=== PATIENT | female | born 1930 | race Caucasian/White ===

== ENCOUNTER 2017-11-22 17:47 | Inpatient (IN) | payer MEDICARE ==
[~2017-11-22] VITALS: Ht 170.1 cm; Wt 61.7 kg
--- NOTE | ~2017-11-22 | PR ---
[place], [place] PROGRESS NOTE NAME: ZULEMA ODONNELL I UNIT #: [id number] ROOM: 311 DOCTOR: EDDIE ALVAREZ MD BIRTHDATE: [birth year] DOS: 11/28/2017 CHIEF COMPLAINT: "This place is foolish ." SUMMARY OF THE VISIT: The patient was interviewed as she sat after eating her breakfast. She continues to be short, terse, sarcastic and irritable. There is a depressive component to her symptoms. She did initially come across rather standoffish by stating that this is a very negative place, but as I stayed firm and continued to talk to her in a soft reassuring voice, she did lighten up and engage in conversation. She did report that she slept well and otherwise is feeling well. MENTAL STATUS: She is alert and oriented to person, place, not necessarily to time. Mood still is depressed. Affect is flat, blunted with a constricted range, but she does brighten upon further discussion. There is no rian or hypomania. There are no overt auditory or visual hallucinations. No delusions, no paranoia. Short term memory has gaps, otherwise she is intact. PLAN: I will increase the Trintellix to 20 mg a day. Continue to engage in individual and jhaveri milieu activities, returning to the least restrictive environment when stable. EDDIE ALVAREZ MD CM:PNTRANS [id number] EDDIE ALVAREZ MD 11/28/1718 interface
--- NOTE | ~2017-11-22 | PR ---
[place], [place] PROGRESS NOTE NAME: ZULEMA ODONNELL I UNIT #: [id number] ROOM: 311 DOCTOR: EDDIE ALVAREZ MD BIRTHDATE: [birth year] DOS: 11/29/2017 CHIEF COMPLAINT: "When do I get to go home." SUMMARY OF THE VISIT: The patient was interviewed after she had completed her breakfast. She was sitting there, watching television. She stopped and engaged readily in conversation. She reports that she is ready to go home and does not know why she is still here. She remains somewhat terse at times, but does redirect with a little bit of support. There is no agitation or aggression noted, no physical aggression at least. Verbally, she does stop when you engage her more readily. MENTAL STATUS: She is alert and oriented with significant time gaps. Mood does seem to be trending towards euthymia. Affect is more appropriate. There is no rian or hypomania. There are no overt auditory or visual hallucinations. No delusions, no paranoia. Short term memory remains poor. PLAN: I will recheck a valproic acid level in the a.m. on 11/30/2017 to ensure that it is therapeutic. Continue to engage in individual and jhaveri milieu activity, returning to the least restrictive environment when stable. EDDIE ALVAREZ MD CM:PNTRANS 0819 EDDIE ALVAREZ MD 11/29/17 0913 interface
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
--- NOTE | ~2017-11-22 | PR ---
[place], [place] PROGRESS NOTE NAME: ZULEMA ODONNELL I UNIT #: [id number] ROOM: 311 DOCTOR: EDDIE ALVAREZ MD BIRTHDATE: [birth year] DOS: 11/26/2017 CHIEF COMPLAINT: "What do you want?" SUMMARY OF THE VISIT: The patient was interviewed as she sat eating her breakfast in the quiet room. She was very terse and short this morning, very irritable. She tended to be very negativistic in her overall approach. Nurses report continued mood swings and mood lability. MENTAL STATUS: She is alert and oriented to person, place, but not time. Mood does still seem to be rather labile and affect at times is inappropriate. There is no rian or hypomania. There are no overt auditory or visual hallucinations. She does process slowly and short term memory remains poor. PLAN: Her RPR is positive, so I will go ahead and order an FTA antibody. She continues to exhibit excessive mood lability and irritability. I will increase her Depakote Sprinkles from 250 mg 3 times a day to 500 mg twice a day, targeting a blood level between 60 and 80 in order to decrease mood lability and impulsivity. We will continue to engage in individual and jhaveri milieu activity with the plan to return to the least restrictive environment when psychiatrically stable. EDDIE ALVAREZ MD CM:PNTRANS [id number] EDDIE ALVAREZ MD 11/26/17 0955 interface
--- NOTE | ~2017-11-22 | PR ---
[place], [place] PROGRESS NOTE NAME: ZULEMA ODONNELL I UNIT #: [id number] ROOM: 311 DOCTOR: EDDIE ALVAREZ MD BIRTHDATE: [birth year] DOS: 11/24/2017 CHIEF COMPLAINT: "There is a bump in my head. I fell." SUMMARY OF THE VISIT: The patient was interviewed in the dining area. She reported that she slept well last night and she was very busy eating her breakfast. She again reported to me that she is from [facility] and lives in her own house. When questioned as to whether or not she had ever lived in a snf, she stated no she has always lived in her home. She remains generally pleasantly confused with me, although nurses report that she can be rather terse and short at times, both with them and with peers. MENTAL STATUS: She is alert and oriented with significant time gaps. Mood does seem to be trending towards euthymia. Affect is more appropriate. There is no rian or hypomania. There are no gross paranoia or delusions. Short term memory is exceedingly poor. PLAN: I will go ahead and maximize out the Namenda dose to 10 mg b.i.d. Maintain Exelon at 9.5 mg a day with the plan ultimately to increase it to 13.3 maxing out its potential benefits. Maintain her current dose of Depakote. Previously, Depakote level was subtherapeutic at 21.4, but the dose has already been adjusted to take this into account. Monitor for risk, benefit, engage in individual and jhaveri milieu activities, returning to the least restrictive environment when psychiatrically stable. EDDIE ALVAREZ MD CM:PNTRANS [id number] EDDIE ALVAREZ MD 11/24/17 0923 interface
--- NOTE | ~2017-11-22 | PR ---
[place], [place] PROGRESS NOTE NAME: ZULEMA ODONNELL I UNIT #: [id number] ROOM: 311 DOCTOR: EDDIE ALVAREZ MD BIRTHDATE: [birth year] DOS: 11/27/2017 CHIEF COMPLAINT: ____ full of it." SUMMARY OF THE VISIT: The patient was interviewed in the dining area. She had completed her breakfast and was sitting with peers watching television. She engaged in conversation. She was very sarcastic, terse and short, this morning. She seems very unhappy with her current living situation, both here at the half-way. Her responses tended to be somewhat vague at times, but there was a certain amount of neologism and negativity about all of her comments. She stopped short of being physically combative; however, nurses report that after I had talked with her and left, she did throw her cough across the floor. MENTAL STATUS: She is alert and oriented to person, possibly place, not to time. Mood still seems to be labile. There does seem to be a depressive component present. There is no rian or hypomania. There are no auditory or visual hallucinations. No delusions, no paranoia. Short term memory remains exceedingly poor. PLAN: I will maintain her current dose of Namenda and Exelon, maintain her current dose of Depakote to decrease mood lability and impulsivity. Given the fact that there does seem to be a depressive component, I will add Trintellix 10 mg daily. This not only should help with depression, but it should impact positively on her cognition. We will continue to engage in individual and jhaveri milieu activity, returning to the least restrictive environment when psychiatrically stable. EDDIE ALVAREZ MD CM:PNTRANS [id number] EDDIE ALVAREZ MD 11/27/17 1007 interface
--- NOTE | ~2017-11-22 | PR ---
[place], [place] PROGRESS NOTE NAME: ZULEMA ODONNELL I UNIT #: [id number] ROOM: 311 DOCTOR: EDDIE ALVAREZ MD BIRTHDATE: [birth year] DOS: 11/30/2017 CHIEF COMPLAINT: "Happy Easter to you too." SUMMARY OF THE VISIT: The patient was interviewed as she sat in the dining area eating her breakfast. As I approached, she smiled. She was actually very pleasant to me. I wished her happy Easter and she returned the greeting. She was pleasant and offered no other complaints. Nurses report episodic agitation, but redirects more easily. She is tolerating the current medication regimen well. I see no sedation, somnolence or other side effects. MENTAL STATUS: She is alert and oriented to person, possibly place, not necessarily time. Mood does seem to be gradually trending towards euthymia. Affect is more appropriate. There is no rian or hypomania. There are no auditory or visual hallucinations. No delusions. She does process slowly at times and her responses can be short and sparse. Short term memory is poor. PLAN: Valproic acid level was therapeutic at 69.4, so I will maintain her current Depakote dose as is. I will continue her psychotropics as they are as she does seem to be achieving benefits without side effects, continue to engage in individual and jhaveri milieu activity, returning to the least restrictive environment when stable. EDDIE ALVAREZ MD CM:PNTRANS [id number] EDDIE ALVAREZ MD 11/30/17 1033 interface
--- NOTE | ~2017-11-22 | PR ---
[place], [place] PROGRESS NOTE NAME: ZULEMA ODONNELL I UNIT #: [id number] ROOM: 311 DOCTOR: EDDIE ALVAREZ MD BIRTHDATE: [birth year] DOS: 12/01/2017 CHIEF COMPLAINT: "I don't think there is anything more I need, maybe just to be more comfortable." SUMMARY OF THE VISIT: The patient was interviewed in the dining area where she had completed her entire breakfast and was sitting there, watching television. She did request that perhaps I was able to help her get back to her room, so she could lay down a little bit and be comfortable. She voiced no other complaint. She was much less negative this morning than she had been previously and seems to be tolerating the current medication regimen well. Sleep does seem to be improved as does appetite. I see no sedation or other side effects from the medicines themselves. MENTAL STATUS: She is alert and oriented with time gaps. Mood does seem to be strongly trending towards euthymia. Affect is more appropriate. There is no rian or hypomania. There are no overt auditory or visual hallucinations, delusions or paranoia. Short-term memory is poor, otherwise she is intact. PLAN: I will maintain her current psychotropic regimen. Continue to monitor and support, engage in individual and jhaveri milieu activity with the plan to return to the least restrictive environment when psychiatrically stable. EDDIE ALVAREZ MD CM:PNTRANS [id number] EDDIE ALVAREZ MD 12/01/17 1026 interface
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
[2017-11-22] MEDS ORDERED: VISTARIL50 MG PO (18:08)
[2017-11-22] MEDS ORDERED: NAMENDA-14 PO (18:10)
[2017-11-22] MEDS ORDERED: NAMENDA-21 PO (18:11)
[2017-11-22] MEDS ORDERED: NAMENDA-7 PO (18:13)
[2017-11-22] MEDS ORDERED: ARICEPT10 M1 PO (18:15)
[2017-11-22] MEDS ORDERED: Wellbutrin Sr100 MG PO (18:16)
[2017-11-22] MEDS ORDERED: VITAMIN B122500 MCG PO (18:17)
[2017-11-22] MEDS ORDERED: DEPAKOTE SPRIN125 MG PO (18:18)
[2017-11-22] MEDS ORDERED: DORZOLAMIDE HCL10 ML OP (18:21)
[2017-11-22] MEDS ORDERED: LEVOBUNOLOL HCL15 ML OPH (18:22)
[2017-11-22] MEDS ORDERED: ZESTRIL10 MG PO (18:23)
[2017-11-22] MEDS ORDERED: MELATONIN3 MG PO (18:24)
[2017-11-22] MEDS ORDERED: METFORMIN500 MG PO (18:25)
[2017-11-22] MEDS ORDERED: VITAMIN D5000 UNIT PO (18:26)
[2017-11-22 22:51] VITALS: BP 143/80
[2017-11-23] MEDS ORDERED: OXYGEN NAS (02:13)
[2017-11-23 07:35] LABS: BASO # 0.1 10*3/uL (0.0-0.1); BASO % 0.6 % (0.0-1.0); EOS # 0.8 10*3/uL (0.0-0.4); EOS % 9.7 % (1.0-4.0); HEMATOCRIT 30.6 % (37.0-47.0); HEMOGLOBIN 9.8 g/dl (12.0-16.0); LYMPH # 0.9 10*3/uL (1.3-4.4); LYMPH % 11.5 % (27.0-41.0); MEAN CELL VOLUME 91.1 fl (81.0-99.0); MEAN CORPUSCULAR HGB 29.2 pg (27.0-31.0); MEAN PLATELET VOLUME 8.9 fl (9.6-12.3); MONO # 1.5 10*3/uL (0.1-1.0); MONO % 18.3 % (3.0-9.0); NEUT # 4.7 10*3/uL (2.3-7.9); NEUT % 59.1 % (47.0-73.0); PLATELET COUNT AUTOMATED 392 10*3/uL (130-400); RED BLOOD COUNT 3.36 10*6/uL (4.10-5.10); RED CELL DISTRI WIDTH 13.5 % (0-14.5); WHITE BLOOD COUNT 7.9 10*3/uL (4.8-10.8)
[2017-11-23 07:46] VITALS: BP 131/58
[2017-11-23 07:59] LABS: ALBUMIN 2.3 gm/dl (3.1-4.5); CREATININE 1.08 mg/dL (0.55-1.02); POTASSIUM 4.3 mmol/L (3.5-5.1); TOTAL PROTEIN 6.9 gm/dL (6.4-8.2)
[2017-11-23 08:07] LABS: THYROID STIM HORMONE (HS) 1.97 uIU/ml (0.358-4.75); VALPROIC ACID (DEPAKENE) 21.4 ug/ml (50-100)
[2017-11-23 08:37] LABS: VITAMIN D, 25-HYDROXY 53.2 ng/mL (30-100)
[2017-11-23 10:52] LABS: BILIRUBIN NEGATIVE (NEGATIVE); BLOOD NEGATIVE (NEGATIVE); CLARITY CLEAR (CLEAR); COLOR YELLOW (YELLOW); GLUCOSE 2+ (NEGATIVE); KETONE NEGATIVE (NEGATIVE); LEUKO ESTERASE NEGATIVE (NEGATIVE); NITRITE NEGATIVE (NEGATIVE); SPECIFIC GRAVITY 1.015 (1.005-1.030); UROBILINOGEN 0.2 E.U./dl (0.2-1.0)
[2017-11-23 11:21] LABS: EPITHELIAL CELLS 0-2; HYALINE CAST 0-2
[2017-11-23 20:00] VITALS: BP 134/62
[2017-11-24 07:49] VITALS: BP 152/69
[2017-11-24 20:00] VITALS: BP 157/84
[2017-11-25 08:05] VITALS: BP 155/83
[2017-11-25 21:38] VITALS: BP 122/47
[2017-11-26 07:56] VITALS: BP 146/82
[2017-11-26 21:09] VITALS: BP 150/50
[2017-11-27 08:10] VITALS: BP 117/89
[2017-11-27 19:19] VITALS: BP 123/62
[2017-11-28 07:46] VITALS: BP 136/60
[2017-11-28 20:00] VITALS: BP 144/68
[2017-11-29 07:57] VITALS: BP 121/64
[2017-11-29 20:00] VITALS: BP 147/76
[2017-11-30 07:31] VITALS: BP 119/76
[2017-11-30 20:00] VITALS: BP 125/67
[2017-12-01 07:36] VITALS: BP 115/80
[2017-12-01 20:00] VITALS: BP 128/70
[2017-12-02 08:18] VITALS: BP 137/52
[2017-12-02] MEDS ORDERED: EXELON13.3 MG/21 T (09:38)
[2017-12-02] MEDS ORDERED: MEMANTINE HCL10 MG PO (09:38)
[2017-12-02] MEDS ORDERED: DIVALPROEX SOD125 M1 PO (09:38)
[2017-12-02] MEDS ORDERED: BRIN20TA PO (09:38)
[2017-12-02] MEDS ORDERED: Insulin Lispro, Reco SC (11:55)
== END 2017-12-02 16:15 | disposition other institution (70) | DRG 883 ==
LOC: 3N 17:47
PROVIDERS: Psychiatry & Neurology Psychiatry
DX: F63.81 Intermittent explosive disorder (principal); E11.22 Type 2 diabetes mellitus with diabetic chronic kidney disease; F03.91 Unspecified dementia, unspecified severity, with behavioral disturbance; E11.51 Type 2 diabetes mellitus with diabetic peripheral angiopathy without gangrene; L89.00 Pressure ulcer of unspecified elbow; F33.9 Major depressive disorder, recurrent, unspecified; S61.512A Laceration without foreign body of left wrist, initial encounter; S51.011A Laceration without foreign body of right elbow, initial encounter; X58.XXXA Exposure to other specified factors, initial encounter; N18.3 Chronic kidney disease, stage 3 (moderate); H40.9 Unspecified glaucoma; I12.9 Hypertensive chronic kidney disease with stage 1 through stage 4 chronic kidney disease, or unspecified chronic kidney disease; I87.2 Venous insufficiency (chronic) (peripheral); R29.6 Repeated falls; Z90.49 Acquired absence of other specified parts of digestive tract; Z82.49 Family history of ischemic heart disease and other diseases of the circulatory system; Z88.2 Allergy status to sulfonamides; Z84.89 Family history of other specified conditions; Z79.899 Other long term (current) drug therapy; Z72.0 Tobacco use; Z71.6 Tobacco abuse counseling; Y93.89 Activity, other specified; Y92.89 Other specified places as the place of occurrence of the external cause; Y99.8 Other external cause status